=== PATIENT | female | born 1995 | race Caucasian/White ===

== ENCOUNTER 2017-04-13 15:48 | Emergency (ER) | payer BC ==
[2017-04-13 16:21] VITALS: BP 128/79
[2017-04-13] MEDS ORDERED: Albuterol 0.083% 2.5 MG/3 ML Neb Soln NEB ONE (18:16)
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
--- NOTE | 2017-04-14 07:35 | CR ---
Chest: Two views of the chest were obtained. Comparison: No prior chest x-ray. Heart size and mediastinum are within normal limits. Lungs are clear. Bony structures are unremarkable. Impression: 1. Nothing acute is identified on two-view chest x-ray. Diagnostic code #1
== END 2017-04-13 19:40 | disposition home or self-care (01) ==
LOC: JD.ED 15:48
DX: H93.8X1 Other specified disorders of right ear (principal); J45.909 Unspecified asthma, uncomplicated; F17.210 Nicotine dependence, cigarettes, uncomplicated; Z91.040 Latex allergy status
CPT/HCPCS: 71046; 71046-26; 94640; 99283; 99284-25

== ENCOUNTER 2017-09-05 09:23 | Emergency (ER) | payer BC ==
[2017-09-05 09:37] VITALS: BP 126/89
[2017-09-05] MEDS ORDERED: methylPREDNISolone Sodium Succinate 125 MG/2 ML SDV IVPUSH ONE (10:08)
[2017-09-05] MEDS ORDERED: Sodium Chloride 0.9% 10 ML Syringe FLUSH PRN (10:08)
[2017-09-05] MEDS ORDERED: Sodium Chloride 0.9% 1,000 ML IV SCH (10:15)
[2017-09-05] MEDS ORDERED: Ketorolac 30 MG/ML SDV IVPUSH SCH (10:15)
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
[2017-09-05] MEDS ORDERED: Acetaminophen/HYDROcodone 325-5 MG Tab PO ONE (12:03)
== END 2017-09-05 12:23 | disposition home or self-care (01) ==
LOC: JD.ED 09:23
DX: J02.9 Acute pharyngitis, unspecified (principal); F17.210 Nicotine dependence, cigarettes, uncomplicated; Z91.040 Latex allergy status
CPT/HCPCS: 87081; 87430; 96361; 96374; 96375; 99283; A9270; J1885; J2930; J7040; J7050

== ENCOUNTER 2017-10-18 17:34 | Emergency (ER) | payer BC ==
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
--- NOTE | 2017-10-18 18:48 | CT ---
Head CT Technique: Multiple axial sections through the brain were obtained. Intravenous contrast was not utilized. Findings: Focal atrophy is noted within the right frontal convexity which may be developmental or due to old trauma. Ventricles along with basal cisterns and sulci over the convexities are otherwise within normal limits. No abnormal parenchymal densities are seen. No evidence of intracranial hemorrhage. No midline shift or mass effect is seen. Visualized sinuses are clear. No acute calvarial abnormality is seen. Impression: 1. Incidental finding as noted above. No acute intracranial abnormality is identified. Diagnostic code #2
--- NOTE | 2017-10-18 18:49 | CT ---
CT cervical spine Technique: Multiple axial sections were obtained from above C1 inferiorly to the mid T3 level. Reconstructed sagittal and coronal images were obtained. Findings: Cyst is identified within the posterior vertebral body of C7 which is felt to be incidental. Vertebral body heights and disc spaces are maintained. Vertebral bodies and posterior arches are intact. No fracture is seen. No bony central or bony neural foraminal stenosis is seen. No abnormal subluxation is seen on the reconstructed sagittal images. Slightly abnormal cervical curvature is seen which is most likely positional. Impression: 1. Incidental findings. Nothing acute is seen on CT study of the cervical spine. Diagnostic code #2
[2017-10-18] MEDS ORDERED: Acetaminophen 325 MG Tab PO ONE (18:54)
[2017-10-18 19:42] VITALS: BP 124/73
== END 2017-10-18 19:39 | disposition home or self-care (01) ==
LOC: JD.ED 17:34
DX: S09.90XA Unspecified injury of head, initial encounter (principal); S16.1XXA Strain of muscle, fascia and tendon at neck level, initial encounter; S00.03XA Contusion of scalp, initial encounter; S00.81XA Abrasion of other part of head, initial encounter; S80.811A Abrasion, right lower leg, initial encounter; Z91.040 Latex allergy status; V43.62XA Car passenger injured in collision with other type car in traffic accident, initial encounter
CPT/HCPCS: 70450; 72125; 99284; A9270

== ENCOUNTER 2017-11-03 15:08 | Emergency (ER) | payer BC ==
[2017-11-03] MEDS ORDERED: HYDROmorphone 0.5 MG/0.5 ML SYRINGE IVPUSH ONE ×2 (16:53→19:00)
[2017-11-03] MEDS ORDERED: Ondansetron 4 MG/2 ML SDV IVPUSH ONE (16:53)
[2017-11-03] MEDS ORDERED: Sodium Chloride 0.9% 1,000 ML IV SCH (17:00)
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
[2017-11-03 18:24] VITALS: BP 113/72
[2017-11-03] MEDS ORDERED: LORazepam 2 MG/ML SDV IVPUSH ONE (19:28)
[2017-11-03] MEDS ORDERED: Ketorolac 30 MG/ML SDV IVPUSH ONE (20:33)
[2017-11-03] MEDS ORDERED: Acetaminophen/HYDROcodone 325-5 MG Tab PO ONE (21:54)
--- NOTE | 2017-11-06 07:15 | US ---
Pelvic ultrasound: Multiple real-time images were obtained transvaginally. Comparison: No prior pelvic ultrasound. Technologist's note: Patient had trouble tolerating exam due to pelvic pain Uterus is anteverted. No myometrial abnormality is seen. Endometrial thickness is normal at 9 mm. Left ovary shows no discrete abnormality. Right ovary appears within normal limits. Small amount of fluid is seen adjacent to the right ovary which is believed to be physiologic. Measurements: Uterus: Length 6.5 cm, AP height 3.2 cm, transverse width 4.3 cm Right ovary: 3.6 x 2.2 x 2.3 cm Left ovary: 3.4 x 1.8 x 2.1 cm Impression: 1. No acute abnormality is seen on pelvic ultrasound study. Diagnostic code #1 I agree with preliminary report from [facility], finalized on 11/03/17, 9:57 PM Central Time
== END 2017-11-03 22:00 | disposition home or self-care (01) ==
LOC: JD.ED 15:08
DX: N94.6 Dysmenorrhea, unspecified (principal); F17.210 Nicotine dependence, cigarettes, uncomplicated; Z91.040 Latex allergy status
CPT/HCPCS: 36415; 76830; 84703; 85025; 96361; 96374; 96375; 96376; 99284; A9270; J1170; J1885; J2060; J2405; J7040

== ENCOUNTER 2018-05-22 05:32 | Emergency (ER) | payer BC ==
[2018-05-22 05:43] VITALS: BP 160/109
[2018-05-22] MEDS ORDERED: LORazepam 2 MG/ML SDV IM ONE (06:00)
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
[2018-05-22 07:57] LABS: ACETAMINOPHEN 0 ug/mL (10-30)
== END 2018-05-22 08:38 | disposition home or self-care (01) ==
LOC: JD.ED 05:32
DX: Z04.3 Encounter for examination and observation following other accident (principal); Z79.899 Other long term (current) drug therapy; Z91.040 Latex allergy status; J45.909 Unspecified asthma, uncomplicated; F17.210 Nicotine dependence, cigarettes, uncomplicated
CPT/HCPCS: 36415; 80053; 84443; 85007; 85027; 93005; 96372; 99284; G0480; J2060

== ENCOUNTER 2018-05-23 20:06 | Emergency (ER) | payer BC ==
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
[2018-05-23 21:06] LABS: ACETAMINOPHEN 0 ug/mL (10-30)
[2018-05-23] MEDS ORDERED: Albuterol/Ipratropium 3.0-0.5 MG/3 ML Neb Soln NEB ONE (22:08)
[2018-05-23] MEDS ORDERED: Albuterol 6.7 GM Inhaler INH ONE ×2 (22:58→23:22)
[2018-05-23 23:20] VITALS: BP 119/67
--- NOTE | 2018-05-24 06:22 | CT ---
Head CT Technique: Multiple axial sections through the brain were obtained. Intravenous contrast was not utilized. Comparison: Prior head CT study of 02/01/18. Findings: Ventricles along with basal cisterns and sulci over the convexities are within normal limits. Focal atrophy is again seen overlying the convexity on the right side which is most likely developmental. No evidence of intracranial hemorrhage. No midline shift or mass effect is seen. Bone window settings were reviewed which show no acute calvarial abnormality. Visualized sinuses are clear. Impression: 1. Nothing acute is appreciated on noncontrast head CT study. No significant change from previous study is seen. Diagnostic code #2 I agree with preliminary report from [facility], finalized on 05/23/18, 11:47 PM Central Time
--- NOTE | 2018-05-24 07:38 | CR ---
Chest: Two views of the chest were obtained. Comparison: No prior study. Heart size and mediastinum are normal. Lungs are clear. Bony structures are unremarkable. Impression: 1. Nothing acute is seen on two-view chest x-ray. Diagnostic code #1
== END 2018-05-24 01:22 ==
LOC: JD.ED 20:06
DX: T40.2X2A Poisoning by other opioids, intentional self-harm, initial encounter (principal); R05 Cough; F41.9 Anxiety disorder, unspecified; F43.10 Post-traumatic stress disorder, unspecified; Z91.040 Latex allergy status; Z79.899 Other long term (current) drug therapy
CPT/HCPCS: 36415; 70450; 71046; 80053; 80306; 81001; 81025; 84443; 85007; 85027; 93005; 94640; 99285; G0480; J7620-GY

== ENCOUNTER 2018-06-12 07:51 | Day surgery (SDC) | payer BC ==
[~2018-06-12 07:51] MED LIST: Lactated Ringers 1,000 ML IV SCH; Lidocaine 1% 4 ML ONE; Lidocaine 1%/Sod Bicarbonate in NS 8.4% 1 ML Syringe IDERM PRN; Midazolam 1 MG/ML 2 ML SDV ONE; Ondansetron 4 MG/2 ML SDV ONE; Propofol 200 MG/20 ML SDV ONE; Sodium Chloride 0.9% 10 ML Syringe FLUSH PRN; fentaNYL 250 MCG/5 ML SDV ONE
[2018-06-12] MEDS ORDERED: Albuterol 0.083% 2.5 MG/3 ML Neb Soln NEB ONE (08:11)
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
[2018-06-12] MEDS ORDERED: Midazolam 1 MG/ML 2 ML SDV ONE (09:29)
[2018-06-12] MEDS ORDERED: fentaNYL 100 MCG/2 ML SDV IVPUSH PRN (10:02)
[2018-06-12] MEDS ORDERED: HYDROmorphone 0.5 MG/0.5 ML Syringe IVPUSH PRN (10:02)
[2018-06-12] MEDS ORDERED: Ondansetron 4 MG/2 ML SDV IVPUSH PRN (10:02)
[2018-06-12] MEDS ORDERED: Dexamethasone 4 MG/ML SDV ONE (10:14)
--- NOTE | 2018-06-12 10:38 | PCM.POSTAN ---
POST ANESTHESIA ASSESSMENT - MENTAL STATUS Mental Status: Alert, Oriented - VITAL SIGNS Pulse Rate: 75 SaO2: 100 Resp Rate: 18 Blood Pressure: 127/82 Temperature: 98.2 F - RESPIRATORY Respiratory Status: Respiratory Rate WNL, Airway Patent, O2 Saturation Stable, Supplemental Oxygen - CARDIOVASCULAR CV Status: Pulse Rate WNL, Blood Pressure Stable - GASTROINTESTINAL GI Status: No Symptoms - PAIN Pain Score: 4 (medicated) - POST OP HYDRATION Hydration Status: Adequate & Stable
--- NOTE | 2018-06-12 10:48 | PCM.OPNOTE ---
- General Post-Op/Procedure Note Date of Surgery/Procedure: 06/12/18 Operative Procedure(s): Pap smear, colposcopy, endocervical curettage and cervical biopsies Findings: Cervix with acetowhite lesion noted circumferentially around the cervical os extending approximately 1.5 cm from the os. Atypical vessels were noted at the 1 and 6 o'clock position on the cervix. Decreased Lugol's uptake from 10 to 3 o 'clock position and decreased uptake from 4 to 9 o'clock position. Suspect BRICE- 2 based on colposcopic exam. Pre Op Diagnosis: History of HGSIL Pap smear with BRICE-2 on colposcopy and unable to tolerate repeat colposcopic exam in the office due to anxiety Post-Op Diagnosis: Same, suspect BRICE-2 on today's exam Primary Surgeon: Jagdeep Michele Anesthesia Provider: Darshana Kern Pathology: Pap smear, endocervical curettage, cervical biopsies at 1, 4, 6 and 8 o'clock position Fluid Replacement, Intraop: 700 Output, Urine Amount: 0 (Voided prior to procedure) EBL in mLs: 5 Complications: None Condition: Good Free Text/Narrative:: Duration of surgery: 16 minutes Procedure in detail: The patient was seen in the preoperative holding area and was counseled on the risks, benefits and alternatives of the scheduled procedure with Pap smear, colposcopy, endocervical curettage and possible cervical biopsies. Patient desired to proceed with the procedure and consents were reviewed. Patient was taken back to or #3 and given general anesthesia with laryngeal mask airway was placed without difficulty. She was placed in dorsal lithotomy position using yellowfin stirrups. A speculum was placed and the cervix was visualized. A Pap smear was collected. Acetic acid was then applied to the cervix and there was noted to be a single continuous acetowhite lesion surrounding the cervical os approximately 1.5 cm from the cervical os. There were atypical vessels noted at the 1 and 6 o'clock position. 15% Lugol's solution was then applied to the cervix and there was noted to be decreased uptake at the 10 to 3 o'clock position and also at the 4 to 9 o'clock position. After application of Lugol's solution and endocervical curettage was performed and the curettings were sent to pathology. Cervical biopsies were then taken using Tischer punch biopsy at the 8, 6, 4 and 1 o'clock position. These were sent in separate containers for pathology. Monsel solution was then applied to the biopsied areas and hemostasis was achieved. The procedure was complete at this time. All instruments were removed from the vagina. All needle and sponge counts were correct x 2. The patient was awoken and taken back to the recovery room in stable condition. The patient will be discharged home when she is ambulating, tolerating PO, pain is well controlled with PO medications and she is voiding normally. She will follow up with Dr. Michele in the clinic within the next 2-3 weeks as needed. She was given strict precautions to call the medical office or go to the Emergency Department if she is having severe vaginal bleeding of more than 1 pad per hour , uncontrollable pain, nausea, vomiting, or if she is having a fever greater than 100.4 F.
--- NOTE | 2018-06-12 11:05 | PCM48HPAN ---
Post Anesthesia Note - EVALUATION WITHIN 48HRS OF ANESTHETIC Vital Signs in Normal Range: Yes Patient Participated in Evaluation: Yes Respiratory Function Stable: Yes Airway Patent: Yes Cardiovascular Function Stable: Yes Hydration Status Stable: Yes Pain Control Satisfactory: Yes Nausea and Vomiting Control Satisfactory: Yes Mental Status Recovered: Yes (no complaints- IV out) Pulse Rate: 75 Resp Rate: 18 Temperature: 98.2 F Blood Pressure: 127/82
[2018-06-12 12:31] VITALS: BP 142/82
== END 2018-06-12 12:10 | disposition home or self-care (01) ==
LOC: JD.SDS 07:51
PROVIDERS: ATTEND Obstetrics & Gynecology
DX: D06.0 Carcinoma in situ of endocervix (principal); J45.909 Unspecified asthma, uncomplicated; F17.210 Nicotine dependence, cigarettes, uncomplicated; F41.9 Anxiety disorder, unspecified; F32.9 Major depressive disorder, single episode, unspecified; Z91.040 Latex allergy status; Z79.51 Long term (current) use of inhaled steroids; Z79.899 Other long term (current) drug therapy
CPT/HCPCS: 00940; 81001; 81025; 94640; J1100; J2001; J2250; J2405; J2704; J3010; J7120

== ENCOUNTER 2018-07-14 12:54 | Emergency (ER) | payer BC ==
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
[2018-07-14 13:58] LABS: ACETAMINOPHEN 0 ug/mL (10-30)
[2018-07-14 16:21] VITALS: BP 125/80
== END 2018-07-14 19:00 ==
LOC: JD.ED 12:54
DX: T40.2X2A Poisoning by other opioids, intentional self-harm, initial encounter (principal); F17.210 Nicotine dependence, cigarettes, uncomplicated; Z91.040 Latex allergy status; Z79.899 Other long term (current) drug therapy
CPT/HCPCS: 36415; 80053; 80306; 80346; 81001; 81025; 84443; 85007; 85027; 93005; 99285; G0480; 99283

== ENCOUNTER 2018-07-27 09:03 | Day surgery (SDC) | payer BC ==
[~2018-07-27 09:03] MED LIST changes: +Albuterol 0.083% 2.5 MG/3 ML Neb Soln NEB PRN; -Lactated Ringers 1,000 ML IV SCH; -Lidocaine 1% 4 ML ONE; -Midazolam 1 MG/ML 2 ML SDV ONE; -Ondansetron 4 MG/2 ML SDV ONE; -Propofol 200 MG/20 ML SDV ONE; -fentaNYL 250 MCG/5 ML SDV ONE
[2018-07-27] MEDS ORDERED: Midazolam 1 MG/ML 2 ML SDV ONE (09:12)
[2018-07-27] MEDS ORDERED: Lidocaine 1% 4 ML ONE (09:12)
[2018-07-27] MEDS ORDERED: Ondansetron 4 MG/2 ML SDV ONE (09:12)
[2018-07-27] MEDS ORDERED: Rocuronium 50 MG/5 ML Vial ONE ×2 (09:12→11:54)
[2018-07-27] MEDS ORDERED: Propofol 200 MG/20 ML SDV ONE (09:12)
[2018-07-27] MEDS ORDERED: fentaNYL 250 MCG/5 ML SDV ONE (09:12)
[2018-07-27] MEDS ORDERED: Ketorolac 30 MG/ML SDV ONE (09:19)
[2018-07-27] MEDS: Lactated Ringers 1,000 ML IV SCH ×2 (09:30→14:04)
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
[2018-07-27] MEDS ORDERED: Lactated Ringers 1,000 ML ONE (11:44)
[2018-07-27] MEDS: Bupivacaine 0.5% 30 ML SDV ONE ×2 (11:45→11:56)
[2018-07-27] MEDS: Lidocaine 1% with EPINEPHrine 1:100,000 20 ML MDV ONE ×2 (11:56→12:28)
[2018-07-27] MEDS: Sodium Chloride 0.9% 50 ML SDV ONE ×2 (11:57→12:28)
[2018-07-27] MEDS ORDERED: Neostigmine Methylsulfate 1 MG/ML 5 ML Syringe ONE (12:49)
[2018-07-27] MEDS ORDERED: HYDROmorphone 0.5 MG/0.5 ML Syringe IVPUSH PRN (13:01)
--- NOTE | 2018-07-27 13:02 | PCM.POSTAN ---
POST ANESTHESIA ASSESSMENT - MENTAL STATUS Mental Status: Alert, Oriented - VITAL SIGNS Pulse Rate: 109 SaO2: 96 Resp Rate: 21 Blood Pressure: 129/89 Temperature: 36.7 C - RESPIRATORY Respiratory Status: Respiratory Rate WNL, Airway Patent, O2 Saturation Stable, Supplemental Oxygen - CARDIOVASCULAR CV Status: Pulse Rate WNL, Blood Pressure Stable - GASTROINTESTINAL GI Status: No Symptoms - PAIN Pain Score: 2 - POST OP HYDRATION Hydration Status: Adequate & Stable - OBSERVATIONS Free Text/Narrative:: no anesthesia complications noted
[2018-07-27] MEDS: fentaNYL 100 MCG/2 ML SDV IVPUSH PRN ×2 (13:09→13:41)
--- NOTE | 2018-07-27 13:19 | PCM.OPNOTE ---
- General Post-Op/Procedure Note Date of Surgery/Procedure: 07/27/18 Operative Procedure(s): Diagnostic laparoscopy and LEEP procedure Findings: Overall normal-appearing uterus with suspected fibroid in the left posterior midportion of the uterus. Bilateral fallopian tubes were normal in appearance. Bilateral ovaries appear enlarged likely secondary to cysts that were noted and were more prominent on the left ovary. Surgically absent appendix. Grossly normal-appearing visualized portions of the intestines. Overall normal- appearing liver and gallbladder but suspected fatty liver on exam of the liver. There was one surgical staple in the left posterior cul-de-sac that was removed. Surgical [place] noted at previous appendectomy site. Suspected BRICE-2-3 at the 12 o'clock position on the cervix as well as acetowhite lesion at the 6 o'clock position. There was decreased Lugol's uptake at the 11 to 1 o'clock position as well as from the 5 to 8 o'clock position. This was removed with the LEEP procedure. 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 Theoretical Physicist was not needed during LEEP procedure. Role of Theoretical Physicist: Use of laparoscopic instruments for retraction and visualization during surgery Pathology: 1. Cervical LEEP specimen. 2. Right lateral edge of cervix biopsy 3. Superior edge of cervix biopsy Fluid Replacement, Intraop: 1,800 Output, Urine Amount: 300 EBL in mLs: 0 Complications: None Condition: Good Free Text/Narrative:: Length of procedure: 59 minutes Procedure in detail: The patient was seen in the preoperative holding area and risks, benefits, indications, and alternatives of the procedure were reviewed with the patient and she desired to proceed with a LEEP procedure, diagnostic laparoscopy, possible lysis of adhesions, possible biopsies. Consents were reviewed. The patient was taken back to the OR and given general anesthesia with an endotracheal tube which was placed without difficulty. She was placed in dorsal lithotomy position using Yellofin stirrups. She was prepped and draped in normal sterile fashion. A Blevins catheter was placed without difficulty. Attention was then turned to her umbilicus where it was injected with 0.5% Marcaine and a 5 mm stab incision was made with a scalpel and a Veress needle was then inserted through the incision. The gas was turned on, with an opening pressure of 7 mmHg. Pneumoperitoneum was continued until 15 mmHg pressure. A 5 mm trocar was then inserted under direct visualization through the incision without difficulty. A global view of the abdomen was taken and noted to be overall free of adhesions. Attention was then turned to the suprapubic area and the skin was injected with local anesthetic. A skin incision was made using a scalpel. A 5 mm trocar was then inserted under direct visualization with laparoscope. A global view of the abdomen was then taken and noted to be overall normal in appearance. The intestines, visualized portions of the liver and gallbladder and upper abdomen were overall normal appearance. The uterus was then inspected and felt to be overall normal in appearance except for a small fibroid on the left posterior midportion surface of the uterus. It measured approximately 5 cm and was on the posterior surface of the uterus near the lateral midportion of the uterus. The fallopian tubes and ovaries were normal bilaterally however there were cysts present within the bilateral ovaries that made them somewhat enlarged. Inspection of the posterior cul-de- sac showed a surgical clip in the left posterior cul-de-sac that was removed with traction. The area of removal was hemostatic after removal of this clip. The posterior cul-de-sac was free of adhesions, scarring or lesions. The abdomen was then further explored and felt to be overall normal. The liver and gallbladder were normal in appearance. The liver did have some fatty appearance to the liver. The previous appendectomy site was explored and surgical clips were noted however they were normal in appearance and no signs of an infection. This portion of the case was completed at this time. The gas was then evacuated from the peritoneum and trocars removed. These were closed using 4-0 Monocryl suture and Dermabond. Attention was then turned to the patient's perineum. A speculum was inserted and the cervix was visualized. A colposcope was used to inspect the cervix and it was overall normal in appearance and the previous biopsy sites appear to be well-healed. Acetic acid was applied to the cervix and there is acetowhite lesion at the 12 and 6 o'clock position. Lugol's solution was then applied and there was again noted to be decreased uptake from the 11 to 1 o'clock position and from the 5 to 8 o'clock position on the cervix. A loop electrode was then used to remove the portions with decreased Lugol's uptake. This was sent for pathology. There were additional edges and on the right lateral and superior edge of the cervix that were felt to be additional areas that needed to be removed. These are removed with the loop electrode. All of the cervical biopsies were sent for pathology. A ball cautery tip was then used to coagulate the edges of the biopsy site as well as the bed of the removal site of the cervical specimen. Monsel solution was applied to the cervix for hemostasis and hemostasis was noted. Procedure was complete at this time. The case was completed at this time and all instruments were removed. The Blevins catheter was discontinued at this time. The patient was awoken from general anesthesia and taken to the PACU for recovery in stable condition. She will be discharged to home once she is able to meet all postoperative milestones including tolerating small amount of oral intake and liquids, ambulate without difficulty, her pain controlled with oral medications and able to void without difficulty. She will follow-up in the clinic in 2 weeks or earlier as needed. Sponge, lap, needle, and instrument counts were correct x 2. Review of images from case IMG 001: Grossly normal-appearing uterus with suspected fibroid near the left posterior lateral midportion of the uterus. IMG 002: Grossly normal-appearing right fallopian tube and visualized portion of the ovary. IMG 003: Grossly normal-appearing fimbriated end of the fallopian tube and ovary. IMG 004: Grossly normal-appearing left fallopian tube with ovary present with several cysts visualized. IMG 005: Left ovary with several cysts present. Small filmy physiologic adhesion in the left lower quadrant. IMG 006: Posterior cul-de-sac and normal in appearance. IMG 007: Right posterior cul-de-sac with several prominent vessels noted. IMG 008: Right ovary with enlargement and several cysts noted. IMG 009: Left ovary enlarged in appearance with multiple cysts present. IMG 010: Left posterior cul-de-sac normal in appearance IMG 011: Cecum of the large intestine grossly normal in appearance. IMG 012: Previous appendectomy site with surgical clips noted. Jagdeep Michele M.D. 1:39 PM 07/27/2018
[2018-07-27] MEDS ORDERED: Acetaminophen/oxyCODONE 325-5 MG Tab PO PRN (13:36)
[2018-07-27 14:55] VITALS: BP 129/89
--- NOTE | 2018-07-27 14:55 | PCM48HPAN ---
Post Anesthesia Note - EVALUATION WITHIN 48HRS OF ANESTHETIC Vital Signs in Normal Range: Yes Patient Participated in Evaluation: Yes Respiratory Function Stable: Yes Airway Patent: Yes Cardiovascular Function Stable: Yes Hydration Status Stable: Yes Pain Control Satisfactory: Yes Nausea and Vomiting Control Satisfactory: Yes Mental Status Recovered: Yes Pulse Rate: 109 Resp Rate: 16 Temperature: 36.7 C Blood Pressure: 129/89 - COMMENTS/OBSERVATIONS Free Text/Narrative:: no anesthesia complications noted
== END 2018-07-27 14:35 | disposition home or self-care (01) ==
LOC: JD.SDS 09:03
PROVIDERS: ATTEND Obstetrics & Gynecology
DX: D06.9 Carcinoma in situ of cervix, unspecified (principal); J45.909 Unspecified asthma, uncomplicated; F41.9 Anxiety disorder, unspecified; F32.9 Major depressive disorder, single episode, unspecified; K59.00 Constipation, unspecified; K21.9 Gastro-esophageal reflux disease without esophagitis; F17.210 Nicotine dependence, cigarettes, uncomplicated; E66.9 Obesity, unspecified; Z68.37 Body mass index [BMI] 37.0-37.9, adult; Z91.040 Latex allergy status; Z79.899 Other long term (current) drug therapy
CPT/HCPCS: 57522; 81001; 81025; 94640; A9270; J1170; J1885; J2001; J2250; J2405; J2704; J2710; J3010; J3490; J7120; 00840

== ENCOUNTER 2018-10-27 08:18 | Emergency (ER) | payer BC ==
[2018-10-27 08:27] VITALS: BP 140/98; PULSE 110
[2018-10-27] MEDS ORDERED: Ketorolac 60 MG/2 ML SDV IM ONE (09:17)
[2018-10-27] MEDS ORDERED: Penicillin G Benzathine 1,200,000 Units/2 ML Syringe IM ONE (09:17)
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
== END 2018-10-27 10:05 | disposition home or self-care (01) ==
LOC: JD.ED 08:18
DX: J02.0 Streptococcal pharyngitis (principal); J45.909 Unspecified asthma, uncomplicated; F41.9 Anxiety disorder, unspecified; F17.210 Nicotine dependence, cigarettes, uncomplicated; Z91.040 Latex allergy status; Z79.899 Other long term (current) drug therapy
CPT/HCPCS: 87430; 96372; 99283; J0561; J1885

== ENCOUNTER 2019-09-22 03:31 | Emergency (ER) | payer BC ==
[2019-09-22 03:45] VITALS: PULSE 113
[2019-09-22] MEDS ORDERED: Diphtheria,Pertussis(Acell),Tetanus Vaccine 0.5 ML Syringe IM ONE (04:03)
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
--- NOTE | 2019-09-22 13:08 | CR ---
Right foot: 3 views of the right foot were obtained. Comparison: No prior foot study. Joint spaces are preserved. No acute fracture, dislocation or other bony abnormality is appreciated. Impression: 1. No abnormality is appreciated on 3 view right foot exam. Diagnostic code #1 This report was dictated in MDT
--- NOTE | 2019-09-22 13:18 | CR ---
Right ankle: 3 views of the right ankle were obtained. Comparison: No prior ankle study. Widening of the lateral tibiotalar joint is seen as compared to the medial joint compatible with soft tissue injury. No acute fracture, dislocation or other bony abnormality is appreciated. Impression: 1. Slightly asymmetric joint space within the tibiotalar joint as described above. 2. No acute bony abnormality is appreciated. Diagnostic code #3 This report was dictated in MDT I agree with preliminary report from laura, finalized on 09/22/19, 5:54 PM Central Daylight Time
== END 2019-09-22 05:10 | disposition home or self-care (01) ==
LOC: JD.ED 03:31
DX: S90.31XA Contusion of right foot, initial encounter (principal); S80.11XA Contusion of right lower leg, initial encounter; J45.909 Unspecified asthma, uncomplicated; F41.9 Anxiety disorder, unspecified; F43.10 Post-traumatic stress disorder, unspecified; E66.9 Obesity, unspecified; Z23 Encounter for immunization; Z91.040 Latex allergy status; Z79.899 Other long term (current) drug therapy; W10.9XXA Fall (on) (from) unspecified stairs and steps, initial encounter
CPT/HCPCS: 73610-26-RT; 73610-RT; 73630-26-RT; 73630-RT; 90471; 90715; 99283-25

== ENCOUNTER 2020-04-20 21:30 | Emergency (ER) | payer SELFPAY ==
[2020-04-20 22:02] VITALS: BP 160/119; PULSE 98
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
[2020-04-21 00:14] LABS: ACETAMINOPHEN 0 ug/mL (10-30)
== END 2020-04-21 10:17 | disposition home or self-care (01) ==
LOC: JD.ED 21:30
DX: F33.1 Major depressive disorder, recurrent, moderate (principal); F15.10 Other stimulant abuse, uncomplicated; F12.90 Cannabis use, unspecified, uncomplicated; J45.909 Unspecified asthma, uncomplicated; E66.9 Obesity, unspecified; Z68.41 Body mass index [BMI] 40.0-44.9, adult; Z72.0 Tobacco use; Z91.040 Latex allergy status
CPT/HCPCS: 36415; 80053; 80143; 80179; 80306; 80307; 81025; 84443; 85007; 85027; 93005; 93010; 99284; 99285-25; U0002

== ENCOUNTER 2020-06-27 20:33 | Emergency (ER) | payer SELFPAY ==
[2020-06-27 20:52] VITALS: PULSE 106
[2020-06-27] MEDS ORDERED: cefTRIAXone 1 GM Vial IM ONE (22:41)
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
[2020-06-27 23:25] VITALS: BP 147/89
== END 2020-06-27 23:33 | disposition home or self-care (01) ==
LOC: JD.ED 20:33
DX: T81.49XA Infection following a procedure, other surgical site, initial encounter (principal); J45.909 Unspecified asthma, uncomplicated; E66.9 Obesity, unspecified; Z72.0 Tobacco use; Z68.36 Body mass index [BMI] 36.0-36.9, adult; Z91.040 Latex allergy status
CPT/HCPCS: 87075; 87077; 87186; 87205; 96372; 99283; J0696

== ENCOUNTER 2020-06-29 12:20 | Emergency (ER) | payer SELFPAY ==
[2020-06-29 12:45] VITALS: BP 154/108; PULSE 93
[2020-06-29] MEDS ORDERED: LORazepam 2 MG/ML SDV IM ONE (13:11)
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
== END 2020-06-29 15:27 | disposition home or self-care (01) ==
LOC: JD.ED 12:20
DX: F41.9 Anxiety disorder, unspecified (principal); S01.01XD Laceration without foreign body of scalp, subsequent encounter; F43.9 Reaction to severe stress, unspecified; Z72.0 Tobacco use; Z91.040 Latex allergy status; E66.9 Obesity, unspecified; Z68.37 Body mass index [BMI] 37.0-37.9, adult; Y93.I9 Activity, other involving external motion
CPT/HCPCS: 96372; 99283; J2060; 99284

== ENCOUNTER 2020-07-13 10:32 | Emergency (ER) | payer SELFPAY ==
[2020-07-13 10:42] VITALS: BP 143/93; PULSE 111
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
== END 2020-07-13 12:09 | disposition home or self-care (01) ==
LOC: JD.ED 10:32
DX: R45.851 Suicidal ideations (principal); F19.10 Other psychoactive substance abuse, uncomplicated; J45.909 Unspecified asthma, uncomplicated; E66.9 Obesity, unspecified; Z91.040 Latex allergy status
CPT/HCPCS: 36415; 80053; 80307; 84443; 84703; 85025; 99283; U0002

== ENCOUNTER 2020-07-15 17:06 | Emergency (ER) | payer SELFPAY ==
[2020-07-15 17:26] VITALS: BP 147/90; PULSE 93
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
== END 2020-07-15 20:30 | disposition home or self-care (01) ==
LOC: JD.ED 17:06
DX: F19.10 Other psychoactive substance abuse, uncomplicated (principal); E66.9 Obesity, unspecified; Z68.30 Body mass index [BMI] 30.0-30.9, adult; Z91.040 Latex allergy status; Z72.0 Tobacco use
CPT/HCPCS: 36415; 80053; 80306; 80307; 84443; 84703; 85025; 99282; 99283

== ENCOUNTER 2021-01-01 13:44 | Emergency (ER) | payer SELFPAY ==
[2021-01-01 15:06] VITALS: BP 170/98; PULSE 90
[2021-01-01] MEDS ORDERED: FLU Vacc QS2021-22 36MOS UP/PF 60 MCG/0.5 ML Syringe IM ONE (15:30)
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
[2021-01-01 16:49] LABS: ACETAMINOPHEN 0 ug/mL (10-30)
== END 2021-01-01 18:55 ==
LOC: JD.ED 13:44
DX: R44.3 Hallucinations, unspecified (principal); I10 Essential (primary) hypertension; E66.9 Obesity, unspecified; Z68.38 Body mass index [BMI] 38.0-38.9, adult; Z91.040 Latex allergy status; Z72.0 Tobacco use; Z20.822 Contact with and (suspected) exposure to COVID-19; Z23 Encounter for immunization
CPT/HCPCS: 36415; 80053; 80143; 80179; 80306; 80307; 81025; 84443; 85025; 90471; 90686; 99285; U0002

== ENCOUNTER 2021-01-25 10:53 | Emergency (ER) | payer OTHER ==
[2021-01-25 11:16] VITALS: BP 150/100; PULSE 106
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
== END 2021-01-25 12:10 | disposition home or self-care (01) ==
LOC: JD.ED 10:53
DX: R07.0 Pain in throat (principal); J45.909 Unspecified asthma, uncomplicated; E66.9 Obesity, unspecified; Z68.39 Body mass index [BMI] 39.0-39.9, adult; Z72.0 Tobacco use; Z91.040 Latex allergy status; V89.2XXA Person injured in unspecified motor-vehicle accident, traffic, initial encounter
CPT/HCPCS: 99283

== ENCOUNTER 2021-01-27 13:48 | Emergency (ER) | payer MEDICAID | END 2021-01-27 14:01 | LOC: JD.ED 13:48 | DX: Z53.21 Procedure and treatment not carried out due to patient leaving prior to being seen by health care provider (principal) ==

== ENCOUNTER 2021-01-27 14:29 | Emergency (ER) | payer OTHER, MEDICAID ==
[2021-01-27 14:46] VITALS: BP 134/84; PULSE 112
--- NOTE | 2021-01-27 16:33 | CR ---
Chest: PA and lateral views of the chest were obtained. Comparison: Prior chest x-ray of 05/23/18. Heart size and mediastinum are normal. Fracture is noted within the distal right clavicle which occurs approximately 3.5 cm from the acromioclavicular joint. Several additional bony densities are seen inferior to the right clavicle which overlap the scapula and are from uncertain location. Lungs are clear with no acute parenchymal change. No pneumothorax is seen. Impression: 1. Mildly displaced distal right clavicle fracture. 2. Several bony densities overlying the upper right-sided scapula which are from an uncertain location. If further evaluation is needed, chest CT study could be obtained. 3. Nothing acute is otherwise seen on 2-view chest x-ray. Diagnostic code #3
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
== END 2021-01-27 17:26 | disposition home or self-care (01) ==
LOC: JD.ED 14:29
DX: S42.021A Displaced fracture of shaft of right clavicle, initial encounter for closed fracture (principal); E66.9 Obesity, unspecified; Z68.30 Body mass index [BMI] 30.0-30.9, adult; Z91.041 Radiographic dye allergy status; Z72.0 Tobacco use; V89.2XXA Person injured in unspecified motor-vehicle accident, traffic, initial encounter; Y92.410 Unspecified street and highway as the place of occurrence of the external cause
CPT/HCPCS: 71046; 71046-26; 99283-25

== ENCOUNTER 2021-02-12 18:07 | Emergency (ER) | payer MEDICAID ==
[2021-02-12 19:00] VITALS: BP 133/83; PULSE 68
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
== END 2021-02-12 19:52 | disposition home or self-care (01) ==
LOC: JD.ED 18:07
DX: J06.9 Acute upper respiratory infection, unspecified (principal); H65.93 Unspecified nonsuppurative otitis media, bilateral; J45.909 Unspecified asthma, uncomplicated; E66.9 Obesity, unspecified; Z72.0 Tobacco use; Z68.36 Body mass index [BMI] 36.0-36.9, adult; Z91.040 Latex allergy status
CPT/HCPCS: 99283